=== PATIENT | female | born 1960 | race Caucasian/White ===

== ENCOUNTER 2017-01-31 19:44 | Emergency (ER) | payer OTHER ==
[~2017-01-31] VITALS: Ht 157.5 cm; Wt 56.8 kg
[2017-01-31 20:07] VITALS: BP 110/72; PULSE 55; RESP 16; O2SAT 100
[2017-01-31] MEDS ORDERED: HYDROmorphone 0.5 mg/0.5 mL iSecure Syringe ONE (20:33)
[2017-01-31] MEDS ORDERED: Ondansetron 2 mg/mL 2 mL Inj IVPUSH ONE (20:35)
[2017-01-31] MEDS ORDERED: HYDROmorphone 0.5 mg/0.5 mL iSecure Syringe IVPUSH PRN (20:35)
[2017-01-31] MEDS ORDERED: HYDROmorphone 1 mg/mL Inj IM ONE (20:35)
--- NOTE | 2017-01-31 20:37 | ED.REPORT ---
HPI-Extremity Problem Upper Date of Service Jan 31, 2017 ED Provider: Igor Zapata MD The patient is a 56 year old female with a hx of __ presenting to the ED complaining of a hurt left wrist after falling this afternoon while playing tennis. The patient claims that the pain is improved now compared to earlier, but still painful. She denies LOC, hitting her head, any other injury, fever, chills, nausea, SOB, wheezing, or vomiting. Nursing Notes Stated Complaint: POSSIBLE BROKEN WRIST Chief Complaint: Extremity Trauma Nursing Notes Reviewed: Yes ([employer] not reconciled) Allergies: Coded Allergies: No Known Allergies (Unverified , 01/31/17) Scheduled PRN oxyCODONE-Acetaminophen 5-325 mg (oxyCODONE-Acetaminophen 5-325 mg) 1 Each Tablet 0.5 TAB PO Q6H PRN PRN For Pain General Time Seen by MD: 20:33 Chief Complaint Wrist injury left Hx Obtained From: Patient Arrived By: Walk-in Onset Occurred: Just prior to arrival Symptom Duration: Since onset Caused by: Sports injury (tennis) Location: : Wrist left Pertinent Negative: Pt denies other symptoms Past Medical History Past Medical History h/o breast CA Past Surgical History lumpectomy Reports: Tonsillectomy Smoking History Former Smoker (quit at age 29) Social History Alcohol Use: Denies alcohol use Review of Systems Constitutional: Denies: Chills, Fever Musculoskeletal: Reports: Joint pain (left wrist) Neurologic: Denies: Change LOC Complete sys rev & neg: except as marked. Respiratory: Denies: Shortness of breath, Wheezing GI: Denies: Nausea, Vomiting Physical Exam Initial Vital Signs Vital Signs (First) Date Time Temp Pulse Resp B/P Pulse Ox O2 Delivery O2 Flow Rate FiO2 01/31/17 20:07 36.4 55 16 110/72 100 01/31/17 21:40 Room Air Initial VS: Reviewed, Vital signs normal Interpretation & Diagnostics Lab Results Interpretation Result Diagram: 01/31/17205301/31/172053 Test 01/31/17 20:54 White Blood Count 9.2th/mm3 (3.8-10.1) Red Blood Count 4.21mil/mm3 (3.90-5.20) Hemoglobin 13.5g/dL (12.0-15.6) Hematocrit 39.0% (35.0-46.0) Mean Corpuscular Volume 92.6fL (81-100) Mean Corpuscular Hemoglobin 32.1pg (27.0-35.0) Mean Corpuscular Hemoglobin Concent 34.6% (32.0-37.0) Red Cell Distribution Width 12.2% (12.3-15.4) Platelet Count 237bil/L (150-400) Neutrophils (%) (Auto) 78.8% (40-74) Lymphocytes (%) (Auto) 14.5% (14-46) Monocytes (%) (Auto) 5.7% (4-12) Eosinophils (%) (Auto) 0.4% (0-5) Basophils (%) (Auto) 0.4% (0-3) Sodium Level 139mEq/L (134-144) Potassium Level 3.6mEq/L (3.5-5.2) Chloride Level 100mEq/L (97-108) Carbon Dioxide Level 22mmol/L (18-29) Blood Urea Nitrogen 13mg/dL (6-24) Creatinine 0.85mg/dL (0.57-1.00) Estimat Glomerular Filtration Rate 99mL/min (>59) Glucose Level 124mg/dL (60-99) Calcium Level 9.6mg/dL (8.5-10.1) Total Bilirubin 0.4mg/dL (0.0-1.2) Aspartate Amino Transf (AST/SGOT) 44U/L (0-50) Alanine Aminotransferase (ALT/SGPT) 34U/L (0-32) Alkaline Phosphatase 98U/L (25-150) Total Protein 7.2g/dL (6.4-8.4) Albumin 4.6g/dL (3.4-5.0) Procedures Left Wrist reduction Time out performed patient tolerated procedure well, no complications. CLOSED reduction was performed clinically using finger traps and weights, marked clinical improvement was obtained. The patient was splinted in position using a sugar tong splint reduction successful per clinical exam and radiology 21:12 Proced Mod Sedation/Analgesia Time: 21:11 Procedure Performed by: ED physician Sedation Time: 10 - 15 min Consent / Setup: Informed consent provided, Time-out performed, Hand hygiene observed, Stand sterile technique, Head of bed at 30-60 deg Indication: Fracture reduction Preparation: manager monitoring applied, Pulse oximeter applied, Constant attendance, IV access established, Eval last meal time, Supplemental oxygen, Procedure explained, Suction available, End tidal CO2 mon applied VS Prior to Procedure: All vital signs normal Mallampati: Class & Anatomy: 1 tonsils/uvula/s palate Airway Exam: Normal facial anatomy CVS/Resp Exam: Normal breath sounds Neuro Exam: Alert Sedation: Sedation: Propofol ASA Classification: 1 normal healthy patient Response During Procedure: Handled secretions adeq, Maintained airway well, Oxygenation stable, Sedation appropriate, Vital signs stable Complications During/After: None Reversal: None required Mental Status After Procedure: Alert Post-Procedure: Alert prior to discharge, Vital signs normal Attestation: I performed procedure, I performed sedation Re-Eval/Medical Decision Med Decision/Clinical Course This is a 56-year-old healthy [id number] female who fell playing tennis onto an outstretched left wrist and presents complaining of isolated pain and swelling and deformity of the left wrist. She denies numbness or paresthesias has no additional complaints. He is a very superficial abrasion dorsum right hand, with no other signs of open injury. He has no other injuries. Radiographs confirm a displaced distal radius fracture. The patient's excellent candidate for procedural sedation, and given the anatomic deformity closed reduction was performed following sedation with propofol after informed consent and a timeout. Seizures well-tolerated and marked clinical improvement was obtained, radiographs are improved, but still significant displacement and follow-up orthopedic surgical intervention is anticipated. Case was reviewed with the on-call orthopedist. Patient is placed in a sugar tong splint. Routine precautions reviewed. The patient is discharged in improved condition. Source of Hx: Old records Re-Evaluation/Progress : Time of Eval: 21:09 Re-Evaluation/Progress Note: Performed procedural sedation and wrist reduction Discharge & Departure Referrals: Cliff Covarrubias MD (PCP) Igor Zapata MD Jan 31, 2017 20:37 Jan 31, 2017 20:48
--- NOTE | 2017-01-31 20:38 | DRSVH ---
aPROCEDURE: X-RAY LEFT WRIST, TWO VIEWS ([id number]) INDICATIONS: deformity TECHNIQUE: 2 views of the wrist were acquired. COMPARISON: None. FINDINGS: Bones: There is a comminuted fracture of the radius which extends into the radiocarpal joint. There i s a comminuted fracture dislocation of the distal radius. The distal fracture fragment is displaced a nteriorly and proximally with respect to the proximal fracture fragment. A the carpal bones and the u database management system specialist are grossly intact. Soft tissues: No suspicious soft tissue calcifications. IMPRESSION: Limited study. Fracture dislocation of the distal radius. Dictated by: Alena Escamilla M.D. on 01/31/2017 at 20:34 Approved by: Alena Escamilla M.D. on 01/31/2017 at 20:37
[2017-01-31] MEDS ORDERED: Propofol 10 mg/mL 20 mL Inj IVPUSH ONE ×2 (20:55)
[2017-01-31 21:04] LABS: BASOPHILS % (AUTO) 0.4 % (0-3); EOSINOPHILS % (AUTO) 0.4 % (0-5); MONOCYTES % (AUTO) 5.7 % (4-12); Mean Corpuscular Hemoglobin 32.1 pg (27.0-35.0); Mean Corpuscular Volume 92.6 fL (81-100); NEUTROPHILS % (AUTO) 78.8 % (40-74); Platelet Count 237 bil/L (150-400)
[2017-01-31] MEDS ORDERED: _oxyCODONE/APAP 5-325 mg Tablet PO PRN (21:30)
[2017-01-31 21:40] VITALS: BP 106/67; PULSE 53; RESP 13; O2SAT 97
--- NOTE | 2017-01-31 21:53 | DRSVH ---
PROCEDURE: X-RAY LEFT WRIST COMPLETE, MINIMUM THREE VIEWS ([id number]) INDICATIONS: POST REDUCTION TECHNIQUE: 4 views of the wrist were acquired. COMPARISON: None. FINDINGS: Bones: Patient is status post reduction of the distal radial fracture/dislocation. There is partial r eapproximation of the carpal bones to the distal radius. The distal radial fracture fragment remains anteriorly and proximally displaced with respect to the proximal radial fracture fragment. Soft tissues: No suspicious soft tissue calcifications. IMPRESSION: Partial reduction of the distal radial fracture dislocation. Dictated by: Alena Escamilla M.D. on 01/31/2017 at 21:50 Approved by: Alena Escamilla M.D. on 01/31/2017 at 21:51
[2017-01-31] MEDS ORDERED: OXYC1TAB24 PO (22:10)
[2017-01-31 22:59] VITALS: BP 116/67; PULSE 64; RESP 16; O2SAT 97
== END 2017-01-31 23:03 ==
LOC: SED 19:44
DX: S52.502A Unspecified fracture of the lower end of left radius, initial encounter for closed fracture (principal); W18.39XA Other fall on same level, initial encounter; Y93.73 Activity, racquet and hand sports; Y92.312 Tennis court as the place of occurrence of the external cause; Y99.8 Other external cause status; Z85.3 Personal history of malignant neoplasm of breast; Z87.891 Personal history of nicotine dependence
CPT/HCPCS: 25605; 36415; 73100; 73110; 80053; 85025; 94770; 96374; 99152; 99285; J1170; J2704